=== PATIENT | male | born 1990 | race Caucasian/White ===

== ENCOUNTER 2016-08-16 16:32 | Outpatient (RCR) | payer OTHER ==
[2016-08-16 17:11] LABS: ALBUMIN 4.9 g/dL (3.4-5.0); ANION GAP 17.7 MEQ/L (3-15); TOTAL PROTEIN 8.5 g/dL (6.4-8.5)
[2016-08-23 17:09] LABS: ALBUMIN 4.8 g/dL (3.4-5.0); ANION GAP 14.7 MEQ/L (3-15); CALCULATED IONIZED CALCIUM 3.9 mg/dL (3.8-4.6); TOTAL PROTEIN 8.6 g/dL (6.4-8.5)
[2016-08-31 17:01] LABS: MEAN CORPUSCULAR HEMOGLOBIN 30.8 PG (26.0-34.0); MEAN PLATELET VOLUME 9.8 FL (6.0-9.5); WHITE BLOOD COUNT 4.62 10^3uL (4.0-11.0)
[2016-09-01 14:43] LABS: ALBUMIN 4.8 g/dL (3.4-5.0); ANION GAP 11.1 MEQ/L (3-15); TOTAL PROTEIN 8.5 g/dL (6.4-8.5)
[2016-10-20 17:14] LABS: MEAN CORPUSCULAR HEMOGLOBIN 29.8 PG (26.0-34.0); MEAN CORPUSCULAR HGB CONC 34.4 g/dL (31.0-37.0); MEAN PLATELET VOLUME 9.8 FL (6.0-9.5); WHITE BLOOD COUNT 4.26 10^3uL (4.0-11.0)
[2016-10-20 17:20] LABS: ALBUMIN 4.9 g/dL (3.4-5.0); ANION GAP 15.1 MEQ/L (3-15); CALCULATED IONIZED CALCIUM 3.9 mg/dL (3.8-4.6); TOTAL PROTEIN 8.1 g/dL (6.4-8.5)
== END 2016-11-14 | disposition home or self-care (01) ==
LOC: LAB 16:32
PROVIDERS: ATTEND Physician Assistant
DX: K51.90 Ulcerative colitis, unspecified, without complications (principal)
CPT/HCPCS: 36415; 80053; 85027